=== PATIENT | male | born 1990 | race Caucasian/White ===

== ENCOUNTER 2017-02-10 15:32 | Day surgery (SDC) | payer OTHER ==
[2017-02-10] VITALS (19 sets, daily range): BP systolic 119–171; BP diastolic 67–87; PULSE 70–108; RESP 13–24; Ht 167.6 cm; Wt 99.0 kg
[~2017-02-10] VITALS: Ht 167.6 cm; Wt 99.0 kg
--- NOTE | 2017-02-10 16:01 | HPN ---
Date/Time of Note Date/Time of Note DATE: 02/10/17 TIME: 16:01 Interval H&P Admission Note Pt. seen H&P reviewed: No system changes STEPHANIE PINEDO Feb 10, 2017 16:01
[2017-02-10] MEDS ORDERED: ROPIVACAINE 0.5 % 30 ML VIAL ONE (17:16)
[2017-02-10] MEDS ORDERED: MIDAZOLAM 1 MG/ML 2 ML INJ ONE (17:16)
[2017-02-10] MEDS ORDERED: ROCURONIUM 50 MG INJ ONE (17:33)
[2017-02-10] MEDS ORDERED: NEOSTIGMINE 3 MG/3 ML SYRINGE ONE (17:33)
[2017-02-10] MEDS ORDERED: PROPOFOL 20 ML ONE (17:33)
[2017-02-10] MEDS ORDERED: GLYCOPYRROLATE 0.4 MG INJ ONE (17:33)
[2017-02-10] MEDS ORDERED: CEFAZOLIN 1 GM INJ ONE (17:33)
[2017-02-10] MEDS ORDERED: ONDANSETRON 4 MG INJ ONE (17:37)
[2017-02-10] MEDS ORDERED: FENTAnyl 50 MCG/ML VIAL ONE ×2 (17:37→19:13)
[2017-02-10] MEDS ORDERED: DEXAMETHASONE 4 MG/ML 1 ML INJ ONE (17:37)
[2017-02-10] MEDS ORDERED: VANCOMYCIN 1 GM (PMX) 250 ML ONE (18:17)
[2017-02-10] MEDS ORDERED: POLYMYXIN/BACITRACIN 1L IRRIG IRR ONE (18:25)
[2017-02-10] MEDS ORDERED: KETOROLAC 30 MG INJ ONE (19:59)
[2017-02-10] MEDS ORDERED: VANCOMYCIN 1 GM INJ ONE (20:04)
--- NOTE | 2017-02-10 20:51 | OPPN ---
Date/Time of Note Date/Time of Note DATE: 02/10/17 TIME: 20:50 Operative Report Preoperative Diagnosis left distal humeral shaft fracture, radial nerve palsy- partial Postoperative Diagnosis left distal humeral shaft fracture, radial nerve palsy- partial Operation/Procedure Performed open reduction internal fixation of left distal humeral shaft fracture, radial nerve neurolysis above the elbow Surgeon see signature line help desk assistant none Anesthesia: general Estimated blood loss: 0 - 10 ml's Transfusion Required none Specimen none Grafts/Implants none Complications none STEPHANIE PNIEDO Feb 10, 2017 20:51
[2017-02-10] MEDS ORDERED: OXYCODONE/ACETAMINOPHEN (5/325) TAB PO PRN ×2 (21:52→22:00)
--- NOTE | 2017-02-10 21:56 | OPR ---
DATE OF OPERATION: 02/10/2017 SURGEON: Rubén Valencia MD ANESTHESIA: Peripheral nerve block plus general. PREOPERATIVE DIAGNOSES: 1. Left distal humeral shaft fracture. 2. Partial radial nerve palsy. POSTOPERATIVE DIAGNOSES: 1. Left distal humeral shaft fracture. 2. Partial radial nerve palsy. OPERATIVE PROCEDURE: 1. Open reduction, internal fixation of left distal humeral shaft fracture. 2. Left radial nerve neurolysis at the fracture site. OPERATIVE FINDINGS: Callus formation within the fracture site with varus deformity and radial nerve along the fracture site. INDICATION FOR PROCEDURE: A 26-year-old male with injury to the left arm. He was seen in clinic and diagnosed with a distal humeral shaft fracture with angulation. He also had weakness of his finger and thumb extensors. Options were discussed including conservative management, and patient elected to proceed with surgical intervention understanding the risks and benefits. It did take quite some time for surgical authorization and patient was unable to get into surgery for 6 weeks after the injury. We discussed in clinic that we could try to see if his function was acceptable with conservative management. Patient was not interested in conservative management and requested surgery to correct the deformity. We discussed the risks of surgery including a radial nerve palsy, infection, and need for reoperation including nonunion, and patient elected to proceed with surgery understanding the risks and benefits. OPERATIVE PROCEDURE: The patient was seen in the preoperative area and all questions were answered. Again, he gave informed consent understanding risks and benefits. He has taken to the operative suite and placed in supine position. A peripheral nerve block was performed at my request for perioperative anesthesia as well as postoperative pain relief. The patient was placed under general anesthesia and then transitioned into the lateral position. Tourniquet placed on left upper extremity and left upper extremity was prepped with ChloraPrep stick and draped in usual sterile fashion. Ancef 2 g IV was given and Esmarch bandage was used to exsanguinate the extremity and tourniquet inflated to 250 mmHg. A posterior approach to the distal humerus was utilized with sharp dissection carried down through skin and subcutaneous tissue. The triceps fascia was incised posteriorly and the triceps muscle was split proximally. The radial nerve was identified coursing laterally at the musculotendinous junction and was found to run through the fracture site. I carefully dissected away the radial nerve away from the fracture callus and scar tissue which had formed. After adequate radial nerve neurolysis freeing it up from the fracture site, I turned my attention to the fracture itself. There was 30 degrees varus deformity and significant early callus formation. The callus was debrided and the fracture was placed into a more anatomic alignment. An Accu Med 3.5 mm LCP plate was placed over the posterior of the distal humeral shaft. Cortical and locking screws were placed proximally and distally. Bony alignment was acceptable on x-ray imaging and decision was made to place another plate at 90 degrees for further stabilization. An Accu Med distal humerus lateral condyle plate was placed over the lateral condyle and lateral humeral shaft and was secured with cortical and locking screws. Final x-ray imaging showed appropriate hardware placement and bony alignment. Wound was copiously irrigated and the triceps fascia was closed with 3-0 Monocryl. The dermal layer was closed with 3-0 Monocryl and skin with jody. Vancomycin powder 1 g was placed in the wound prior to closure and the wound was copiously irrigated with 2 L of saline prior to closure. Xeroform was placed over the wound followed by sterile gauze, Webril, and a long arm splint with the elbow at 90 degrees. Tourniquet deflated after total of 130 minutes and patient was awakened from anesthesia. He was taken to the postoperative suite in stable condition and tolerated the procedure well without complications. SPECIMENS: None. ESTIMATED BLOOD LOSS: 5 cc. COUNTS: Sponge, instrument, and needle counts correct. TOURNIQUET TIME: 130 minutes. CONDITION ON DISCHARGE: Stable. Dictated By: Rubén Valencia MD /la/ramon /Document#: [id number]
--- NOTE | 2017-02-10 23:27 | RADRPT ---
PROCEDURE: Intraoperative imaging of the left humerus with fluoroscopy. CLINICAL INDICATION: Left arm pain. Fracture Intraoperative. TECHNIQUE: Four images of the left humerus were obtained in the operating room with an image inten sifier. No radiologist was in attendance. Fluoroscopy time is 11 seconds. COMPARISON: No prior study is available for comparison. FINDINGS: Images demonstrate open reduction and internal fixation of the distal shaft of the left humerus with 2 plates and multiple screws. IMPRESSION: 1. Intraoperative imaging of the distal left humerus. RPTAT: QQ .Navdeep Downs MD, MD Date Time Electronically viewed and signed by .Navdeep Downs MD, on 02/10/2017 23:27 .R/
== END 2017-02-10 22:30 | disposition home or self-care (01) ==
LOC: SDS 15:32
PROVIDERS: ATTEND Orthopaedic Surgery Hand Surgery
DX: S42.302D Unspecified fracture of shaft of humerus, left arm, subsequent encounter for fracture with routine healing (principal); S54.2 Injury of radial nerve at forearm level; X58.XXXD Exposure to other specified factors, subsequent encounter
CPT/HCPCS: 24515; 73060; J0690; J1100; J1885; J2250; J2405; J2710; J2795; J3010; J3370; Z7512; Z7610